=== PATIENT | female | born 1985 | race Two or more races ===

== ENCOUNTER 2025-01-07 13:19 | Inpatient (IN) | payer OTHER ==
[~2025-01-07] VITALS: Ht 162.6 cm; Wt 63.5 kg
[2025-01-07] MEDS ORDERED: KETOROLAC TROMETHAMINE 15 MG VIAL IU ONE (14:15)
[2025-01-07] MEDS ORDERED: ACETAMINOPHEN 500 MG GEL..CAP PO ONE (14:15)
[2025-01-07] MEDS ORDERED: CEFTRIAXONE SODIUM 2,000 MG in 0.9 % SODIUM CHLORIDE 100 ML IV ONE (14:30)
[2025-01-07] MEDS ORDERED: 0.9 % SODIUM CHLORIDE 1,000 ML IV SCH ×2 (14:30→22:00)
[2025-01-07] MEDS ORDERED: FAMOTIDINE/PF 20 MG in 0.9 % SODIUM CHLORIDE 8 ML IV PUSH ONE (14:30)
[2025-01-07 16:11] LABS: BASO % 0.2 % (0.1-1.2); EOS # 0.03 (0.04-0.54); EOS % 0.5 % (0.7-7.0); LYMPH # 1.06 (1.18-3.74); LYMPH % 16.1 % (19.3-53.1); MEAN PLATELET VOLUME 10.10 fl (9.4-12.4); MONO # 0.45 (0.24-0.82); MONO % 6.8 % (4.7-12.5); NEUT # 5.03 (1.56-6.13); NEUT % 76.1 % (34.0-71.1); RED CELL DISTRIBUTION WIDTH 13.9 % (11.6-14.4)
[2025-01-07 16:18] LABS: ERYTHROCYTE SEDIMENTATION RATE 98 mm/hr (0-20)
[2025-01-07 16:32] LABS: INR 1.02
[2025-01-07 16:41] LABS: ALT/SGPT 46 U/L (12-78); AST/SGOT 24 U/L (15-37); BILIRUBIN TOTAL 0.51 mg/dL (0.3-1.2); BUN CREA RATIO 16 (7.0-25.0); CREATININE SERUM 0.70 mg/dL (0.55-1.02); GFR 92.68; GLOBULINA 5.2 G/DL (2.4-3.5); GLUCOSE FASTING 90 mg/dL (65-100); OSMOLALITY SERUM 275 MOSM/KG (275-295)
[2025-01-07 16:55] LABS: URINE APPEARANCE Clear; URINE BILIRRUBIN Negative (NEGATIVE); URINE BLOOD Large; URINE COLOR Yellow; URINE GLUCOSE Negative (NEGATIVE); URINE KETONE Negative (NEGATIVE); URINE LEUKOCYTE Large; URINE NITRATE Negative; URINE PROTEIN 30 (NEGATIVE); URINE UROBILINOGEN 1.0 E.U./dl
[2025-01-07 16:59] LABS: HCG QUANTITATIVE < 1 mUI/mL (1-3)
[2025-01-07 17:01] LABS: URINE BACTERIA 255.5 uL (0.0-1933); URINE EPITHELIAL CELLS 14.1 uL (0.0-38.8); URINE RBC 40.0 uL (0.0-20.8); URINE WBC 93.0 uL (0.0-23.2)
[2025-01-07 17:48] LABS: URINE CAST 1.02 uL (0.0-1.40)
[2025-01-07 17:49] LABS: URINE CRYSTALS FEW /HPF; URINE MUCUS SCANT
[2025-01-07 17:50] LABS: TYPE CELLS SQUAMOUS
[2025-01-07] MEDS ORDERED: MEROPENEM 1,000 MG in 0.9 % SODIUM CHLORIDE 100 ML IV SCH (21:53)
[2025-01-07] MEDS ORDERED: FAMOTIDINE/PF 20 MG in 0.9 % SODIUM CHLORIDE 8 ML IV PUSH SCH (21:57)
[2025-01-07] MEDS ORDERED: ACETAMINOPHEN 325 MG TABLET PO PRN (22:00)
[2025-01-07] MEDS ORDERED: ONDANSETRON HCL 4 MG in 0.9 % SODIUM CHLORIDE 50 ML IV PRN (22:00)
[2025-01-08 02:16] VITALS: BP 99/66
[2025-01-08 05:00] VITALS: BP 97/68; O2SAT 99
[2025-01-08] MEDS ORDERED: MEROPENEM 500 MG in 0.9 % SODIUM CHLORIDE 50 ML IV SCH (08:00)
[2025-01-08] MEDS ORDERED: LACTOBACILLUS ACIDOPHILUS 1 CAP CAP PO SCH (09:00)
[2025-01-08 10:19] VITALS: BP 108/72; O2SAT 99
[2025-01-08] MEDS ORDERED: KETOROLAC TROMETHAMINE 30 MG VIAL IV NR (18:00)
[2025-01-08 18:12] VITALS: BP 131/60
[2025-01-09 02:39] VITALS: BP 96/66; O2SAT 99
[2025-01-09 09:24] VITALS: BP 104/69; O2SAT 100
[2025-01-09 19:28] VITALS: BP 123/89
[2025-01-09] MEDS ORDERED: ACETAMINOPHEN 160 MG/5 ML ML PO PRN (20:30)
[2025-01-10 01:18] VITALS: BP 96/58; O2SAT 97
[2025-01-10 10:11] VITALS: BP 102/70; O2SAT 98
== END 2025-01-10 14:44 | disposition home or self-care (01) | DRG 694 ==
LOC: ER 13:20 → MEDJ 22:14
PROVIDERS: General Practice; ADMIT Student in an Organized Health Care Education/Training Program; ATTEND Student in an Organized Health Care Education/Training Program
PROC: BW21ZZZ Computerized Tomography (CT Scan) of Abdomen and Pelvis (ICD-10-PCS; principal; 2025-01-07)
DX: N13.39 Other hydronephrosis (principal); R31.0 Gross hematuria; N15.1 Renal and perinephric abscess